=== PATIENT | female | born 1945 | race Caucasian/White ===

== ENCOUNTER 2017-01-24 09:46 | Emergency (ER) | payer MEDICARE, BC | END 2017-01-24 14:29 | disposition home or self-care (01) | LOC: ER1 09:46 | DX: S00.03XA Contusion of scalp, initial encounter (principal); S00.83XA Contusion of other part of head, initial encounter; S80.02XA Contusion of left knee, initial encounter; S80.01XA Contusion of right knee, initial encounter; S80.212A Abrasion, left knee, initial encounter; S80.211A Abrasion, right knee, initial encounter; W01.0XXA Fall on same level from slipping, tripping and stumbling without subsequent striking against object, initial encounter; Y92.512 Supermarket, store or market as the place of occurrence of the external cause; Z23 Encounter for immunization | CPT/HCPCS: 70450; 70486; 71010; 72125; 73130; 73522; 73564; 90471; 90715; 99284; J0696; J7040 ==